=== PATIENT | female | born 1950 | race Caucasian/White ===

== ENCOUNTER 2017-12-20 08:00 | Day surgery (SDC) | payer MEDICARE, OTHER ==
[~2017-12-20 08:00] MED LIST: BRIMONIDINE 0.2% OPHTH DROPS 5 ML ONE; BSS/LIDOCAINE/EPINEPHRINE 1 ML SYRINGE ONE; TIMOLOL 0.5% OPHTH DROPS ONE; TRIAMCIN/MOXIFLOX OPHTHALMIC 0.6 ML VIAL IO ONE; VANCOMYCIN OPHTHALMI 8MG/0.8ML 8 MG/0.8 ML SYRINGE IO ONE
[2017-12-20] MEDS ORDERED: KETOROLAC 0.45% OPHTH DROPS ONE (08:39)
[2017-12-20] MEDS ORDERED: PHENYLEPHRINE 2.5% OPHTH 2 ML DROPS ONE (08:40)
[2017-12-20] MEDS ORDERED: PROPARACAINE 0.5% OPHTH DROPS 15 ML ONE (08:40)
[2017-12-20] MEDS ORDERED: CYCLOPENTOLATE 1% OPHTH DROPS 2 ML ONE (08:40)
[2017-12-20] MEDS ORDERED: LACTATED RINGERS 500 ML IV ONE ×2 (08:44)
[2017-12-20] MEDS ORDERED: LACTATED RINGERS 1,000 ML IV ONE (09:02)
--- NOTE | 2017-12-20 09:51 | ANESTHESIA ---
Anesthesia History & Physical - Instructions [place]/Slash: -Left hand click circles element as positive or present. -Right hand click slashes element as negative or not present. - History and Physical Cardiac:: reports: Other (lightheaded, nausea, "something has changed") GI/Endocrine:: reports: Denies Other:: reports: Denies - Anesthetic History Any difficulty with Anesthesia:: Denies Family history of Malignant Hyperthermia:: Denies - NPO NPO: positive: Other (Imodium @0700 with 10oz H2O) - Other History Other History: In to assess patient pre-operatively for cataract extraction with IOL placement under MAC. Pt lying back in bed with eyes closed saying "I don't feel well, something just changed" s/p eye gtts for procedure. Unable to palpate radial pulse at L and R hand. BP 78/43. (Admit HR and BP were 85 and 128/84, respectively.) 3 lead ECG placed (Sinus Bradycardia@42, not junctional). Pt with continued complaints of not feeling well. Robinul 0.3mg IV push x1. HR increased to 64 after 2 mins. BP 107. Pt states she feels much better. Discussed with ED MD Jc and he suggested we bring patient to ED to monitor. Patient refusing admit to ED, states she would rather see her primary care provider. Labs, EKG, Meds, Allergy - Medications Medications: Ambulatory Orders Medication Instructions Recorded Confirmed Loperamide [Imodium] 2 mg PO QID PRN 06/07/16 06/08/16 Multivitamin [Multivitamins] 1 each PO DAILY 06/08/16 06/08/16 Ondansetron Odt [Zofran Odt] 4 mg TL Q6HR PRN #30 tablet 06/09/16 - Allergy Allergy: Allergies Allergy/AdvReac Type Severity Reaction Status Date / Time Sulfa (Sulfonamide Allergy Unknown Verified 06/07/16 20:20 Antibiotics) Loperamide [Imodium] 2 mg PO QID PRN 06/07/16 Multivitamin [Multivitamins] 1 each PO DAILY 06/08/16 Ondansetron Odt [Zofran Odt] 4 mg TL Q6HR PRN #30 tablet 06/09/16
== END 2017-12-20 08:01 | disposition home or self-care (01) ==
LOC: SDS 08:00
PROVIDERS: ATTEND Ophthalmology
PROC: 085K3ZZ Destruction of Left Lens, Percutaneous Approach (ICD-10-PCS; principal; 2017-12-20)
DX: Z53.09 Procedure and treatment not carried out because of other contraindication (principal); R00.1 Bradycardia, unspecified; H26.9 Unspecified cataract
CPT/HCPCS: 66984; 93005; A9270; J3490; J7120

== ENCOUNTER 2018-01-17 06:24 | Day surgery (SDC) | payer MEDICARE, OTHER ==
[2018-01-17] MEDS ORDERED: KETOROLAC 0.45% OPHTH DROPS ONE (06:38)
[2018-01-17] MEDS ORDERED: PROPARACAINE 0.5% OPHTH DROPS 15 ML ONE (06:38)
[2018-01-17] MEDS ORDERED: CYCLOPENTOLATE 1% OPHTH DROPS 2 ML ONE (06:38)
[2018-01-17] MEDS ORDERED: PHENYLEPHRINE 2.5% OPHTH 2 ML DROPS ONE (06:38)
[2018-01-17] MEDS ORDERED: CYCLOPENTOLATE 1% OPHTH DROPS 2 ML LEFTEYE ONE (06:45)
[2018-01-17] MEDS ORDERED: LACTATED RINGERS 500 ML IV ONE (06:45)
[2018-01-17] MEDS ORDERED: PROPARACAINE 0.5% OPHTH DROPS 15 ML LEFTEYE ONE ×2 (06:45→07:45)
[2018-01-17] MEDS ORDERED: KETOROLAC 0.45% OPHTH DROPS LEFTEYE ONE (06:45)
[2018-01-17] MEDS ORDERED: PHENYLEPHRINE 2.5% OPHTH 2 ML DROPS LEFTEYE ONE (06:45)
[2018-01-17] MEDS ORDERED: EPINEPHrine 1 MG/ML AMP ONE (07:16)
[2018-01-17] MEDS ORDERED: TRIAMCIN/MOXIFLOX OPHTHALMIC 0.6 ML VIAL IO ONE (07:16)
[2018-01-17] MEDS ORDERED: TIMOLOL 0.5% OPHTH DROPS ONE (07:17)
[2018-01-17] MEDS ORDERED: BRIMONIDINE 0.2% OPHTH DROPS 5 ML ONE (07:17)
[2018-01-17] MEDS ORDERED: BSS/LIDOCAINE/EPINEPHRINE 1 ML SYRINGE ONE (07:18)
[2018-01-17] MEDS ORDERED: VANCOMYCIN OPHTHALMI 8MG/0.8ML 8 MG/0.8 ML SYRINGE IO ONE ×2 (07:19→07:45)
[2018-01-17] MEDS ORDERED: MIDAZOLAM 2 MG/2 ML VIAL IVP ONE (07:40)
[2018-01-17] MEDS ORDERED: EPINEPHrine 1 MG/ML AMP IR ONE (07:45)
[2018-01-17] MEDS ORDERED: BSS/LIDOCAINE/EPINEPHRINE 1 ML SYRINGE IO ONE (07:45)
[2018-01-17] MEDS ORDERED: TIMOLOL 0.5% OPHTH DROPS OPTH ONE (07:45)
[2018-01-17] MEDS ORDERED: BRIMONIDINE 0.2% OPHTH DROPS 5 ML LEFTEYE ONE (07:45)
[2018-01-17] MEDS ORDERED: CHONDR SULF/HYALURONATE SYRINGE IO ONE (07:45)
[2018-01-17 08:33] VITALS: BP 118/71
--- NOTE | 2018-01-17 10:19 | OPERATIVE REPORT ---
DATE OF SERVICE: 01/17/2018 Physician: Orion Holbrook MD PREOPERATIVE DIAGNOSIS: Visually significant cataract, left eye. This was her first cataract surgery. POSTOPERATIVE DIAGNOSIS: Visually significant cataract, left eye. This was her first cataract surgery. NAME OF PROCEDURE: Phacoemulsification with posterior chamber intraocular lens implant, left eye, with laser assist. SURGEON: Orion Holbrook MD ANESTHESIA: Monitored anesthesia care. COMPLICATIONS: None. OPERATIVE INDICATIONS: This is a 67-year-old woman with progressive vision loss in the left eye due to 2+ nuclear sclerotic cataract. Best corrected visual acuity was 20/ 20, with glare to 20/50 in the left eye. Indications for surgery were difficulty in driving in low light or at night, difficulty driving at night because of head lights from other vehicles and/or street lights. She was consented at length concerning risks and benefits of cataract surgery, after which she expressed a desire to proceed with surgery. OPERATIVE PROCEDURE: The patient was taken to OR #3 and placed under monitored anesthesia care. A surgical timeout was conducted confirming correct patient, correct procedure, and correct surgical site. She was placed on the LenSx laser, and her eye was docked to the laser interface. The laser performed a capsulotomy, lens softening, phaco wounds and arcuate keratotomy incisions. She was then moved to the operating microscope, given topical anesthesia, and then prepped and draped in the usual sterile fashion. The eye was entered at the 6 and 3-o'clock positions. Intracameral Shugarcaine was injected into the anterior chamber, followed by Viscoat. A capsulorrhexis flap created by the LenSx laser was removed from the anterior chamber. Nucleus was hydrodissected and phacoemulsified. Cortex was evacuated using automated infusion and aspiration. Provisc was injected in the capsular bag and a 09.0-diopter intraocular lens inserted into the bag. Approximately 0.7 mL of a mixture of triamcinolone, moxifloxacin and vancomycin was injected subconjunctivally in the superior quadrant for infection and inflammation prophylaxis. I and A was used to evacuate the viscoelastic materials. The eye was inflated to physiologic pressure using balanced salt solution, and found to be watertight. The patient was taken from the operating room in good condition, and given postoperative instructions. TD: 01/17/2018 08:14 TAD
== END 2018-01-17 06:25 | disposition home or self-care (01) ==
LOC: SDS 06:24
PROVIDERS: ATTEND Ophthalmology
PROC: 08RK3JZ Replacement of Left Lens with Synthetic Substitute, Percutaneous Approach (ICD-10-PCS; principal; 2018-01-17 07:30)
DX: H25.12 Age-related nuclear cataract, left eye (principal); I10 Essential (primary) hypertension; M19.90 Unspecified osteoarthritis, unspecified site; Z86.73 Personal history of transient ischemic attack (TIA), and cerebral infarction without residual deficits; Z96.649 Presence of unspecified artificial hip joint; Z79.899 Other long term (current) drug therapy; Z94.89 Other transplanted organ and tissue status
CPT/HCPCS: 66984; A9270; J3490; V2632

== ENCOUNTER 2018-02-21 06:54 | Day surgery (SDC) | payer MEDICARE, OTHER ==
[~2018-02-21 06:54] MED LIST changes: -BRIMONIDINE 0.2% OPHTH DROPS 5 ML ONE; -BSS/LIDOCAINE/EPINEPHRINE 1 ML SYRINGE ONE; +CYCLOPENTOLATE 1% OPHTH DROPS 2 ML ONE; +EPINEPHrine 1 MG/ML AMP ONE; +KETOROLAC 0.45% OPHTH DROPS ONE; +PHENYLEPHRINE 2.5% OPHTH 2 ML DROPS ONE; +PROPARACAINE 0.5% OPHTH DROPS 15 ML ONE; -TIMOLOL 0.5% OPHTH DROPS ONE; -TRIAMCIN/MOXIFLOX OPHTHALMIC 0.6 ML VIAL IO ONE; -VANCOMYCIN OPHTHALMI 8MG/0.8ML 8 MG/0.8 ML SYRINGE IO ONE
[2018-02-21] MEDS ORDERED: TRIAMCIN/MOXIFLOX OPHTHALMIC 0.6 ML VIAL IO ONE (06:55)
[2018-02-21] MEDS ORDERED: BRIMONIDINE 0.2% OPHTH DROPS 5 ML ONE (06:55)
[2018-02-21] MEDS ORDERED: TIMOLOL 0.5% OPHTH DROPS ONE (06:55)
[2018-02-21] MEDS ORDERED: BSS/LIDOCAINE/EPINEPHRINE 1 ML SYRINGE ONE (06:56)
[2018-02-21] MEDS ORDERED: VANCOMYCIN OPHTHALMI 8MG/0.8ML 8 MG/0.8 ML SYRINGE IO ONE (06:56)
[2018-02-21] MEDS ORDERED: LACTATED RINGERS 500 ML IV ONE ×2 (07:09→08:49)
[2018-02-21] MEDS ORDERED: CYCLOPENTOLATE 1% OPHTH DROPS 2 ML RIGHTEYE ONE (07:23)
[2018-02-21] MEDS ORDERED: PROPARACAINE 0.5% OPHTH DROPS 15 ML RIGHTEYE ONE ×2 (07:23→08:15)
[2018-02-21] MEDS ORDERED: PHENYLEPHRINE 2.5% OPHTH 2 ML DROPS RIGHTEYE ONE (07:23)
[2018-02-21] MEDS ORDERED: KETOROLAC 0.45% OPHTH DROPS RIGHTEYE ONE (07:23)
--- NOTE | 2018-02-21 07:24 | ANESTHESIA ---
Pre-Anesthesia VS, & Labs - Diagnosis R Nuclear Sclerotic Cataract - Procedure R laser assisted extraction of R cataract with IOL Vital Signs: Temp Pulse Resp BP Pulse Ox 36.2 C L 16 134/85 H 100 02/21/18 07:10 02/21/18 07:10 02/21/18 07:10 02/21/18 07:10 Height 5 ft 1 in Weight (kg) 47.2 kg Body Mass Index 19.6 - NPO >8 hours - Is Patient ?: No Home Medications and Allergies Home Medications: Ambulatory Orders Medication Instructions Recorded Confirmed Loperamide [Imodium] 2 mg PO QID PRN 06/07/16 01/17/18 Multivitamin [Multivitamins] 1 each PO DAILY 06/08/16 01/17/18 Allergies/Adverse Reactions: Allergies Allergy/AdvReac Type Severity Reaction Status Date / Time Sulfa (Sulfonamide Allergy Unknown Unknown Verified 02/21/18 07:27 Antibiotics) Anes History & Medical History - Anesthetic History Anesthesia Complications: reports: No previous complications Family history of Anesthesia Complications: Denies Family history of Malignant Hyperthermia: Denies - Medical History Cardiovascular: reports: None Pulmonary: reports: None Gastrointestinal: reports: Other Urinary: reports: None Musculoskeletal: reports: Osteoarthritis, Osteoporosis Endocrine/Autoimmune: reports: None Blood Disorders: reports: None Skin: reports: None Smoking Status: Never smoker - Surgical History General: Bowel surgery Eyes Ears Nose Throat (EENT): Tonsil/Adenoidectomy Gynecologic: Hysterectomy, Oophrectomy Orthopedic: Hip replacement, Other Results - EKG Results EKG Comparison: Reviewed EKG (SR@79 with sinus pause 12/20/17) Exam General: Alert, Oriented x3, Cooperative, No acute distress Neck Mobility: Normal Mallampati classification: II Thyromental Distance: 4-6 cm Respiratory: Lungs clear, Normal breath sounds Cardiovascular: Regular rate (Symptomatic bradycardia with previous admit for cataract extraction. Case was cancelled. Next visit, pt was not bradycardic and able to complete procedure.) Cognitive Status: Within normal limits Plan Anesthesia Type: MAC Consent for Procedure(s) Verified and Reviewed: Yes Code Status: Attempt Resuscitation ASA classification: 2-Mild systemic disease Is this case an emergency?: No
[2018-02-21] MEDS ORDERED: CHONDR SULF/HYALURONATE SYRINGE IO ONE (08:14)
[2018-02-21] MEDS ORDERED: EPINEPHrine 1 MG/ML AMP IVP ONE (08:14)
[2018-02-21] MEDS ORDERED: BRIMONIDINE 0.2% OPHTH DROPS 5 ML OPTH ONE (08:14)
[2018-02-21] MEDS ORDERED: TIMOLOL 0.5% OPHTH DROPS OPTH ONE (08:14)
[2018-02-21] MEDS ORDERED: TRIAMCIN/MOXIFLOX/VANCO 1 ML VIAL IO ONE ×2 (08:15)
[2018-02-21] MEDS ORDERED: BSS/LIDOCAINE/EPINEPHRINE 1 ML SYRINGE IO ONE ×2 (08:15)
[2018-02-21] MEDS ORDERED: MIDAZOLAM 2 MG/2 ML VIAL IVP ONE (08:34)
[2018-02-21 08:52] VITALS: BP 122/93
--- NOTE | 2018-02-21 16:56 | OPERATIVE REPORT ---
DATE OF SERVICE: 02/21/2018 Physician: Orion Holbrook MD PREOPERATIVE DIAGNOSIS: Visually significant cataract, right eye. Cataract surgery was performed on her left eye on 01/17/2018. POSTOPERATIVE DIAGNOSIS: Visually significant cataract, right eye. Cataract surgery was performed o n her left eye on 01/17/2018. PROCEDURE PERFORMED: Phacoemulsification with posterior chamber intraocular lens implant, right eye, with laser assist. SURGEON: Orion Holbrook MD ANESTHESIA: Monitored anesthesia care. COMPLICATIONS: None. OPERATIVE INDICATIONS: This is a 68-year-old woman with progressive vision loss in the right eye due to 2+ nuclear sclerotic and 1 to 2+ cortical cataract. Best corrected visual acuity was 20/20 with glare to 20/50 in the right eye. Indications for surgery are overall decrease in vision, difficulty reading, difficulty seeing street signs, difficulty driving in low light or at night, difficulty driv ing at night because of headlights from other vehicles, and difficulty with glare or bright lights in any situation. She was consented at length concerning risks and benefits of cataract surgery, after which she expressed a desire to proceed with surgery. OPERATIVE PROCEDURE: The patient was taken into OR #3 and placed under monitored anesthesia care. A surgical timeout was conducted confirming correct patient, correct procedure, and correct surgical s ite. She was placed on the LenSx laser and her eye was docked to the laser interface. The laser per formed the capsulotomy, lens softening, phaco wounds and arcuate keratotomy incisions. She was then moved to the operating microscope, given topical anesthesia, and prepped and draped in the usual ster ile fashion. The eye was entered at the 12 and 9 o'clock positions. Intracameral Shugarcaine was in jected into the anterior chamber followed by Viscoat. A capsulorrhexis flap created by the LenSx las er was removed from the anterior chamber. Nucleus was hydrodissected and phacoemulsified. The jolie x was evacuated using automated infusion and aspiration. Provisc was injected in the capsular bag an d an 11.5 diopter intraocular lens was inserted into the bag. Approximately 0.7 mL of a mixture of t riamcinolone, moxifloxacin, and vancomycin was injected subconjunctivally in the superior quadrant fo r infection and inflammation prophylaxis. I and A was used to evacuate the viscoelastic materials. The eye was inflated to physiologic pressure using balanced salt solution and found to be watertight. The patient was taken from the operating room in good condition and given postop instructions. TD: 02/21/2018 08:53
== END 2018-02-21 06:55 | disposition home or self-care (01) ==
LOC: SDS 06:54
PROVIDERS: ATTEND Ophthalmology
PROC: 08RJ3JZ Replacement of Right Lens with Synthetic Substitute, Percutaneous Approach (ICD-10-PCS; principal; 2018-02-21 08:00)
DX: H25.811 Combined forms of age-related cataract, right eye (principal); Z98.42 Cataract extraction status, left eye
CPT/HCPCS: 66984; A9270; J3490; V2632

== ENCOUNTER 2019-09-21 12:44 | Outpatient (CLI) | payer MEDICARE, OTHER ==
--- NOTE | 2019-09-22 07:33 | Ultrasound Report ---
Reason: THYROID NODULE Procedure Date: 09/21/2019 Accession Number: [id number] / [id number] Procedure: US - Head or Neck Soft Tissue CPT Code: Final Report FULL RESULT: EXAM: THYROID ULTRASOUND EXAM DATE: 09/21/2019 12:50 PM. CLINICAL HISTORY: Thyroid nodule. COMPARISON: None. TECHNIQUE: Real time sonographic imaging of the thyroid was performed by the economic manager. Multiple truck sales representative static images were saved for review. FINDINGS: THYROID GLAND: Right Lobe: 4.3 x 1.7 x 1.6 cm, volume 6.1 cc. Normal background echotexture. Right Lobe Nodules: Inferior pole nodule measuring 0.3 x 0.4 cm, with slightly irregular margin, perhaps secondary to rim calcification. Left Lobe: 4.2 x 1.0 x 1.3 cm, volume 2.9 cc. Normal background echotexture. Left Lobe Nodules: None. Isthmus: 0.2 cm AP. Normal background echotexture. Isthmic Nodules: None. LYMPH NODES: No adenopathy demonstrated in the central or lateral compartment. OTHER: No lymph node or abnormal mass detected at the left submandibular gland region area of concern. IMPRESSION: 1. No mass is detected at the area of concern in the region of the left submandibular gland. 2. Single subcentimeter nodule, located in inferior right thyroid lobe. Slightly irregular margins, perhaps secondary to rim calcification. Suggest a follow-up within 6 months to ensure stability. 3. No additional thyroid lobe nodules identified. Management recommendations are based on 2015 [place] [employer] Management Guidelines for Adult Patients with Thyroid Nodules and Differentiated Thyroid Cancer. RADIA
== END 2019-09-21 12:45 | disposition home or self-care (01) ==
LOC: DI 12:44
PROVIDERS: ATTEND Physician Assistant
DX: E04.1 Nontoxic single thyroid nodule (principal)
CPT/HCPCS: 76536

== ENCOUNTER 2020-04-30 07:50 | Outpatient (CLI) | payer MEDICARE, OTHER ==
[2020-04-30] MEDS ORDERED: IOVERSOL 320 100 ML VIAL IVP ONE ×2 (08:10→10:02)
[2020-04-30] MEDS ORDERED: IOVERSOL 320 50 ML VIAL ONE (08:10)
[2020-04-30 08:21] LABS: BASOPHILS % (AUTO) 0.6 %; EOSINOPHILS # (AUTO) 0.1 10^3/uL (0.0-0.7); EOSINOPHILS % (AUTO) 1.5 %; HGB - HEMOGLOBIN 13.6 g/dL (12.0-16.0); LYMPHOCYTES # (AUTO) 1.3 10^3/uL (1.5-3.5); LYMPHOCYTES % (AUTO) 23.8 %; MEAN CORPUSCULAR HEMOGLOBIN 32.7 pg (27.0-31.0); MEAN CORPUSCULAR HGB CONC 33.8 g/dL (32.0-36.0); MEAN CORPUSCULAR VOLUME 96.6 fL (81.0-99.0); MEAN PLATELET VOLUME 10.9 fL (7.9-10.8); MONOCYTES # (AUTO) 0.3 10^3/uL (0.0-1.0); MONOCYTES % (AUTO) 6.4 %; NEUTROPHILS # (AUTO) 3.6 10^3/uL (1.5-6.6); NEUTROPHILS % (AUTO) 67.3 %; PLT - PLATELET COUNT 202 10^3/uL (130-450); RED BLOOD COUNT 4.16 10^6/uL (4.20-5.40); WHITE BLOOD COUNT 5.3 x10^3/uL (4.8-10.8)
[2020-04-30 08:42] LABS: ALBUMIN 3.9 g/dL (3.2-5.5); ALBUMIN/GLOBULIN RATIO 1.7 (1.0-2.2); BILIRUBIN,TOTAL 0.9 mg/dL (0.2-1.0); CALCIUM 9.1 mg/dL (8.5-10.3); CREATININE 0.8 mg/dL (0.4-1.0); TOTAL PROTEIN 6.2 g/dL (6.7-8.2)
--- NOTE | 2020-04-30 09:18 | CT Report ---
PROCEDURE: Abdomen/Pelvis W INDICATIONS: ABD MASS CONTRAST: IV CONTRAST: Optiray 320 ml: 100 PO CONTRAST: Optiray 320 ml50 TECHNIQUE: After the administration of oral and intravenous contrast, 5 mm thick sections acquired from the diap hragms to the symphysis. 5 mm thick coronal and sagittal reformats were acquired. For radiation dos e reduction, the following was used: automated exposure control, adjustment of mA and/or kV accordin g to patient size. COMPARISON: CT abdomen and pelvis 06/07/2016. FINDINGS: Image quality: Excellent. ABDOMEN: Lung bases: Lung bases are clear. Heart size is normal. Suspect small hiatal hernia. Solid organs: Liver is enlarged in size. No focal lesion. Gallbladder is unremarkable. Biliary sys tem is non dilated. Pancreas enhances normally. No splenomegaly. No adrenal nodules. Kidneys demon strate normal size and enhancement, without hydronephrosis. Cortical hypodensity in the inferior righ t kidney too small to further characterize. Peritoneum and bowel: Bowel loops demonstrate normal wall thickness and caliber. Appendix is absent . No free fluid or air. Nodes and vessels: No retroperitoneal or mesenteric adenopathy by size criteria. Aorta and inferior vena cava are normal in size. Miscellaneous: No ventral hernias. Mild thickening of the infraumbilical abdominal wall, (7/34), how ever similar to 2016. PELVIS: Genitourinary: Bladder is unremarkable. Beam hardening artifact. Miscellaneous: No inguinal hernias or adenopathy. Bones: No suspicious bony lesions. Scoliosis. No vertebral body compression fractures. Right total hip arthroplasty. IMPRESSION: 1. Mild thickening of the infraumbilical abdominal wall, not significantly changed. No fluid collecti on is identified. -Consider targeted ultrasound of the site of serous fluid drainage. 2. No bowel obstruction. 3. No adenopathy. Reviewed by: Dean Gonzalez MD on 04/30/2020 9:17 AM PDT Approved by: Dean Gonzalez MD on 04/30/2020 9:17 AM PDT Station ID: [id number]
[2020-04-30] MEDS ORDERED: IOVERSOL 320 50 ML VIAL PO ONE (10:03)
== END 2020-04-30 07:51 | disposition home or self-care (01) ==
LOC: DI 07:50
PROVIDERS: ATTEND Nurse Practitioner Family
DX: R19.00 Intra-abdominal and pelvic swelling, mass and lump, unspecified site (principal)
CPT/HCPCS: 36415; 74177; 80053; 85025; Q9967

== ENCOUNTER 2020-09-14 07:01 | Outpatient (CLI) | payer MEDICARE, OTHER ==
[2020-09-14 15:12] LABS: BASOPHILS % (AUTO) 0.8 %; EOSINOPHILS # (AUTO) 0.1 10^3/uL (0.0-0.7); EOSINOPHILS % (AUTO) 2.4 %; HCT - HEMATOCRIT 40.4 % (37.0-47.0); HGB - HEMOGLOBIN 13.4 g/dL (12.0-16.0); LYMPHOCYTES # (AUTO) 1.8 10^3/uL (1.5-3.5); LYMPHOCYTES % (AUTO) 36.7 %; MEAN CORPUSCULAR HGB CONC 33.2 g/dL (32.0-36.0); MEAN CORPUSCULAR VOLUME 99.5 fL (81.0-99.0); MEAN PLATELET VOLUME 12.5 fL (7.9-10.8); MONOCYTES # (AUTO) 0.3 10^3/uL (0.0-1.0); MONOCYTES % (AUTO) 6.6 %; NEUTROPHILS # (AUTO) 2.7 10^3/uL (1.5-6.6); NEUTROPHILS % (AUTO) 53.3 %; PLT - PLATELET COUNT 210 10^3/uL (130-450); RED BLOOD COUNT 4.06 10^6/uL (4.20-5.40); RED CELL DISTRIBUTION WIDTH 12.1 % (12.0-15.0)
[2020-09-14 15:38] LABS: THYROID STIMULATING HORMONE 5.13 uIU/mL (0.34-5.60)
[2020-09-14 15:42] LABS: ALBUMIN 4.2 g/dL (3.2-5.5); ALKALINE PHOSPHATASE 65 IU/L (42-121); ALT ALANINE AMINOTRANSFERASE 24 IU/L (10-60); AST ASPARTATE AMINOTRANSFERASE 32 IU/L (10-42); BILIRUBIN,TOTAL 1.2 mg/dL (0.2-1.0); BUN - BLOOD UREA NITROGEN 22 mg/dL (6-20); CALCIUM 9.2 mg/dL (8.5-10.3); CARBON DIOXIDE - CO2 26 mmol/L (21-32); CHLORIDE 102 mmol/L (101-111); CHOL/HDL RATIO 2.1 (<4.4); CHOLESTEROL 241 mg/dL; CREATININE 0.7 mg/dL (0.4-1.0); GFR - MDRD 83 (>89); GLUCOSE 89 mg/dL (70-100); HDL CHOLESTEROL 116 mg/dL; LDL CHOLESTEROL,CALCULATED 114 mg/dL; POTASSIUM 4.1 mmol/L (3.5-5.0); SODIUM 137 mmol/L (135-145); TOTAL PROTEIN 6.3 g/dL (6.7-8.2); TRIGLYCERIDES 57 mg/dL; VLDL CHOLESTEROL 11 mg/dL
== END 2020-09-14 07:02 | disposition home or self-care (01) ==
LOC: LAB.S 07:01
PROVIDERS: ATTEND Internal Medicine
DX: M81.0 Age-related osteoporosis without current pathological fracture (principal); Z13.6 Encounter for screening for cardiovascular disorders; Z79.899 Other long term (current) drug therapy; K91.2 Postsurgical malabsorption, not elsewhere classified
CPT/HCPCS: 36415; 80053; 80061; 82306; 82607; 83721; 84443; 85025

== ENCOUNTER 2022-05-08 11:59 | Outpatient (CLI) | payer MEDICARE ==
[2022-05-08 12:29] LABS: BASOPHILS % (AUTO) 0.4 %; EOSINOPHILS # (AUTO) 0.1 10^3/uL (0.0-0.7); HCT - HEMATOCRIT 41.3 % (37.0-47.0); HGB - HEMOGLOBIN 13.9 g/dL (12.0-16.0); LYMPHOCYTES # (AUTO) 1.3 10^3/uL (1.5-3.5); LYMPHOCYTES % (AUTO) 16.2 %; MEAN CORPUSCULAR HEMOGLOBIN 32.7 pg (27.0-31.0); MEAN CORPUSCULAR HGB CONC 33.7 g/dL (32.0-36.0); MEAN CORPUSCULAR VOLUME 97.2 fL (81.0-99.0); MEAN PLATELET VOLUME 10.9 fL (7.9-10.8); MONOCYTES # (AUTO) 0.4 10^3/uL (0.0-1.0); MONOCYTES % (AUTO) 4.9 %; NEUTROPHILS # (AUTO) 6.1 10^3/uL (1.5-6.6); NEUTROPHILS % (AUTO) 77.2 %; PLT - PLATELET COUNT 223 10^3/uL (130-450); RED BLOOD COUNT 4.25 10^6/uL (4.20-5.40); RED CELL DISTRIBUTION WIDTH 11.7 % (12.0-15.0); WHITE BLOOD COUNT 7.9 x10^3/uL (4.8-10.8)
[2022-05-08 12:49] LABS: ALBUMIN 4.3 g/dL (3.2-5.5); ALKALINE PHOSPHATASE 58 IU/L (42-121); ALT ALANINE AMINOTRANSFERASE 20 IU/L (10-60); AST ASPARTATE AMINOTRANSFERASE 27 IU/L (10-42); BILIRUBIN,TOTAL 0.7 mg/dL (0.2-1.0); BUN - BLOOD UREA NITROGEN 25 mg/dL (6-20); CALCIUM 9.6 mg/dL (8.5-10.3); CARBON DIOXIDE - CO2 28 mmol/L (21-32); CHLORIDE 103 mmol/L (101-111); CHOL/HDL RATIO 2.1 (<4.4); CHOLESTEROL 223 mg/dL; CREATININE 0.8 mg/dL (0.4-1.0); GFR - MDRD 71 (>89); GLUCOSE 97 mg/dL (70-100); HDL CHOLESTEROL 105 mg/dL; LDL CHOLESTEROL,CALCULATED 86 mg/dL; LDL/HDL RATIO 0.8 (<4.4); POTASSIUM 4.5 mmol/L (3.5-5.0); SODIUM 139 mmol/L (135-145); TOTAL PROTEIN 6.4 g/dL (6.7-8.2); TRIGLYCERIDES 160 mg/dL; VLDL CHOLESTEROL 32 mg/dL
[2022-05-09 05:10] LABS: HBsAG SCREEN Negative (Negative); HCV AB <0.1 s/co ratio (0.0-0.9); HEPATITIS B CORE IGM AB Negative (Negative); HEPATITIS B SURFACE AB QUANT <3.1 mIU/mL (Immunity>9.9)
== END 2022-05-08 12:00 | disposition home or self-care (01) ==
LOC: LAB 11:59
PROVIDERS: ATTEND Physician Assistant
DX: L63.8 Other alopecia areata (principal)
CPT/HCPCS: 36415; 80053; 80061; 81599; 83721; 85025; 86317; 86480; 86705; 86803; 87340

== ENCOUNTER 2022-06-12 09:26 | Outpatient (CLI) | payer MEDICARE ==
--- NOTE | 2022-06-12 13:11 | XRAY Report ---
PROCEDURE: Chest 2 View X-Ray INDICATIONS: COUGH TECHNIQUE: 2 views of the chest were acquired. COMPARISON: None FINDINGS: Surgical changes and devices: None. Lungs and pleura: No pleural effusions or pneumothorax. There is a 6 to 7 mm indeterminate nodular d ensity along the left costophrenic angle. Given the imaging findings aren't recommend a CT of the neeru st with intravenous contrast for further evaluation. Mediastinum: Mediastinal contours are normal. Heart size is normal. Bones and chest wall: No suspicious bony abnormalities. Soft tissues appear unremarkable. There is a mild to moderate thoracolumbar scoliosis present. IMPRESSION: 1. Small indeterminate 6 to 7 mm nodular density involving the patient's left costophrenic angle. Giv en the imaging findings I recommend a CT of the chest with intravenous contrast for further evaluatio n. 2. Mild to moderate thoracolumbar scoliosis. Reviewed by: Lucas David MD on 06/12/2022 1:10 PM PST Approved by: Lucas David MD on 06/12/2022 1:10 PM PST Station ID: [id number]
== END 2022-06-12 09:27 | disposition home or self-care (01) ==
LOC: DI.S 09:26
PROVIDERS: ATTEND Internal Medicine
DX: R91.8 Other nonspecific abnormal finding of lung field (principal); M41.9 Scoliosis, unspecified

== ENCOUNTER 2022-06-23 10:15 | Outpatient (CLI) | payer MEDICARE | END 2022-06-23 10:16 | disposition home or self-care (01) | LOC: LAB.S 10:15 | PROVIDERS: ATTEND Internal Medicine | DX: R91.1 Solitary pulmonary nodule (principal); Z22.7 Latent tuberculosis | CPT/HCPCS: 81599 ==

== ENCOUNTER 2022-08-10 13:53 | Outpatient (CLI) | payer MEDICARE | END 2022-08-10 13:54 | disposition home or self-care (01) | LOC: LAB.S 13:53 | PROVIDERS: ATTEND Internal Medicine | DX: Z22.7 Latent tuberculosis (principal) | CPT/HCPCS: 81599; 86480 ==

== ENCOUNTER 2022-09-13 15:25 | Outpatient (CLI) | payer MEDICARE ==
--- NOTE | 2022-09-13 16:07 | CT Report ---
PROCEDURE: HEAD WO INDICATIONS: HEADACHE TECHNIQUE: Noncontrast 4.5 mm thick angled axial sections acquired from the foramen magnum to the vertex. For r adiation dose reduction, the following was used: automated exposure control, adjustment of mA and/or kV according to patient size. COMPARISON: None. FINDINGS: Image quality: Excellent. CSF spaces: Basal cisterns are patent. No extra-axial fluid collections. Ventricles are normal in size and shape. Brain: No midline shift. No intracranial masses or hemorrhage. Ribera-white matter interface is norm al. Skull and face: Calvarium and visualized facial bones are intact, without suspicious lesions. Sinuses: Visualized sinuses and mastoids are clear. IMPRESSION: No acute intracranial finding. Reviewed by: Peewee Cortez MD on 09/13/2022 4:06 PM [facility] Approved by: Peewee Cortez MD on 09/13/2022 4:06 PM [facility] Station ID: [id number]
== END 2022-09-13 15:26 | disposition home or self-care (01) ==
LOC: DI 15:25
PROVIDERS: ATTEND Internal Medicine
DX: R51.9 Headache, unspecified (principal)

== ENCOUNTER 2022-09-26 06:27 | Day surgery (SDC) | payer MEDICARE ==
[2022-09-26] MEDS ORDERED: CEFAZOLIN 2G/50ML 0.9% NS 2 GM/50 ML BAG IV ONE (06:31)
[2022-09-26] MEDS ORDERED: LACTATED RINGERS 1,000 ML IV ONE (06:52)
[2022-09-26] MEDS ORDERED: fentaNYL 100 MCG/2 ML VIAL ONE (07:08)
[2022-09-26] MEDS ORDERED: MIDAZOLAM 2 MG/2 ML VIAL ONE (07:08)
[2022-09-26] MEDS ORDERED: PROPOFOL 200 MG/20 ML VIAL IVP ONE (07:08)
[2022-09-26] MEDS ORDERED: BUPIVACAINE 0.5% PF 30 ML VIAL ONE (07:16)
--- NOTE | 2022-09-26 07:28 | ANESTHESIA ---
Pre-Anesthesia VS, & Labs - Diagnosis giant cell arteritis - Procedure temporal artery biopsy Vital Signs: Temp Pulse Resp BP Pulse Ox O2 Flow Rate 36.4 C L 63 18 129/79 100 09/26/22 06:52 09/26/22 06:52 09/26/22 06:52 09/26/22 06:52 09/26/22 06:52 Height: 5 ft 1 in Weight (kg): 45.6 kg Body Mass Index: 19.0 BMI Classification: Normal - NPO >8 hours - Is Patient ?: No Home Medications and Allergies Home Medications: Ambulatory Orders Lisinopril [Zestril] 2 tab PO DAILY 09/25/22 amLODIPine [Norvasc] 1 tab PO DAILY 09/25/22 predniSONE [Prednisone] 1 tab PO DAILY 09/25/22 rifAMPin [Rifampin] 450 mg PO DAILY 09/25/22 Loperamide [Imodium] 2 mg PO QID PRN 06/07/16 Multivitamin [Multivitamins] 1 each PO DAILY 06/08/16 Lisinopril [Zestril] 2 tab PO DAILY 09/25/22 amLODIPine [Norvasc] 1 tab PO DAILY 09/25/22 predniSONE [Prednisone] 1 tab PO DAILY 09/25/22 rifAMPin [Rifampin] 450 mg PO DAILY 09/25/22 Allergies/Adverse Reactions: Allergies Allergy/AdvReac Type Severity Reaction Status Date / Time Sulfa (Sulfonamide Allergy Unknown Unknown Verified 09/25/22 12:36 Antibiotics) Anes History & Medical History - Anesthetic History Anesthesia Complications: reports: No previous complications - Medical History Cardiovascular: reports: Hypertension Pulmonary: reports: Other (latent TB) Gastrointestinal: reports: None Urinary: reports: None Neuro: reports: None Musculoskeletal: reports: Osteoarthritis, Osteoporosis Endocrine/Autoimmune: reports: None Blood Disorders: reports: None Skin: reports: None Smoking Status: Never smoker Psychosocial: reports: No issues indicated History of Cancer?: No - Surgical History General: reports: Bowel surgery Eyes Ears Nose Throat (EENT): reports: Tonsil/Adenoidectomy Gynecologic: reports: Hysterectomy, Oophrectomy Orthopedic: reports: Hip replacement, Other Exam General: Alert, Oriented x3, Cooperative, No acute distress Dental: WNL Mouth Openin Fingerbreadth Neck Mobility: Normal Mallampati classification: II Thyromental Distance: 4-6 cm Mental/Cognitive Status: Alert/Oriented X3, Normal for patient Plan Anesthesia Type: MAC Consent for Procedure(s) Verified and Reviewed: Yes Code Status: Attempt Resuscitation ASA classification: 2-Mild systemic disease Is this case an emergency?: No
[2022-09-26] MEDS ORDERED: BUPIVACAINE 0.5% PF 30 ML VIAL SUBQ ONE ×2 (08:21)
[2022-09-26] MEDS ORDERED: LACTATED RINGERS 500 ML IV ONE (08:58)
[2022-09-26 09:20] VITALS: BP 124/84
--- NOTE | 2022-09-26 09:20 | OPERATIVE REPORT ---
Operative Report - General Procedure Date: 09/26/22 Planned Procedure: RIGHT temporal artery biopsy Pre-Op Diagnosis: Unilateral severe headache concern for giant cell arteritis Procedure Performed: RIGHT temporal artery biopsy Post Op Diagnosis: Same - Procedure Note Primary Surgeon: Dante Mcneil MD Anesthesia Provider: Alex Jeronimo CRNA Anesthesia Technique: Local (4 mL of 0.5% Marcaine), MAC IV Fluids (mL): 500 Estimated Blood Loss (mL): 1 Drain/Tube Type: Other (None.) Complications: None. - Other Other Information/Narrative: After verbal and written informed consent was obtained detailing the operation, the alternatives the operation including no operation, risks of infection, bleeding requiring transfusion with its risks, nerve injury, and and after I met with the patient confirming the surgery and the site of surgery, the patient was brought to the operative suite and placed supine on the operating table. Great care was taken to avoid pressure points to prevent pressure necrosis or nerve injury. Monitoring devices were applied along with TEDs and pneumatic compression stockings (to prevent DVT). The patient received preoperative antibiotics for surgical prophylaxis. Alex Jeronimo CRNA sedated and anesthetized the patient for the entire procedure. Ultrasonography was used to identify the the artery and the border of the hair and skin just superior to the ear. The patient was prepped and draped in the usual sterile manner. With the patient draped my initials were clearly visible. A "time in" then confirmed that the patient was identified with 3 identifiers (name, date, and medical record number), the history and physical was updated and in the chart, the signed consent confirming the procedure was in the chart, the patient was in the correct position, the aforementioned prophylactic measures were in place or given, we had the correct personnel and equipment to complete the procedure and that anesthesia and the surgical team were given an opportunity to express any concerns. With the agreement of everyone in the room we proceeded with the operation. After injecting the skin overlying the path of the artery with half percent Marcaine, an incision was made tracing the path of the artery and was carried out down to the artery using a combination of sharp dissection with Metzenbaum scissors and Bovie electrocautery. Meticulous hemostasis was achieved using Bovie electrocautery. Once the artery was identified and freed from its surrounding tissues a sterile ultrasound probe was used to definitively identify arterial blood flow within it. The artery was then clipped using small hemoclips proximally and distally and the specimen was excised with Metzenbaum scissors, removed from the operative field, placed on a moistened Telfa, and placed in formalin for pathologic evaluation. The ultrasound probe was then used again today to demonstrate that there was no arterial flow behind the location of where the artery was removed to ensure completion of the resection. Meticulous hemostasis was ensured using Bovie electrocautery. The surrounding skin was then reinjected using half percent Marcaine for long-term pain control. The skin was approximated using 3-0 Prolene in an interrupted and alternating mattress and simple fashion. Prolene was used to make identification of the suture easier for removal. Additionally standard sutures were placed in order allow for shampooing of the patient's hair without concern of wound dehiscence. The skin was cleaned of its prep. At this point a timeout was performed that confirmed that all counts were correct x2, the procedure that was performed, the blood loss, the IV fluids administered, the patient's condition, and any concerns of the operating team had. Having tolerated the procedure well, the patient was taken recovery room in good and stable condition. The plan is for outpatient discharge when the patient is adequately recovered. This document was created in part using voice recognition technology. Because of the inherent limitations of the system, occasional same sounding word substitutions and grammatical errors do occur and persist despite proofreading. Please read this document for content.
--- NOTE | 2022-09-26 09:23 | ANESTHESIA POST OP EVALUATION ---
Anesthesia Post Eval - Post Anesthesia Eval Vitals: Last Vital Signs Temp 36.3 C L 09/26/22 09:17 Pulse 64 09/26/22 09:17 Resp 18 09/26/22 09:17 BP 124/84 H 09/26/22 09:17 Pulse Ox 99 09/26/22 09:17 O2 Flow Rate CV Function Including HR & BP: Stable Pain Control: Satisfactory Nausea & Vomiting: Negative Mental Status: Baseline Respiratory Status: Airway Patent Hydration Status: Satisfactory Anesthesia Complications: None
== END 2022-09-26 06:28 | disposition home or self-care (01) ==
LOC: SDS 06:27
PROVIDERS: ATTEND Surgery
PROC: 03BS0ZX Excision of Right Temporal Artery, Open Approach, Diagnostic (ICD-10-PCS; principal; 2022-09-26 07:30)
DX: R51.9 Headache, unspecified (principal); I10 Essential (primary) hypertension; Z86.16 Personal history of COVID-19
CPT/HCPCS: 37609; J0690; J7120

== ENCOUNTER 2022-10-03 12:24 | Day surgery (SDC) | payer MEDICARE ==
[2022-10-03] MEDS ORDERED: LACTATED RINGERS 1,000 ML IV ONE (13:07)
[2022-10-03] MEDS ORDERED: PROPOFOL 500 MG/50 ML 500 MG/50 ML VIAL ONE (15:49)
--- NOTE | 2022-10-03 16:05 | ANESTHESIA ---
Pre-Anesthesia VS, & Labs - Diagnosis positive fit test - Procedure colonoscopy Vital Signs: Temp Pulse Resp BP Pulse Ox O2 Flow Rate 36.2 C L 60 16 129/77 100 10/03/22 12:45 10/03/22 12:45 10/03/22 12:45 10/03/22 12:45 10/03/22 12:45 Height: 5 ft 1 in Weight (kg): 44.8 kg Body Mass Index: 18.6 BMI Classification: Normal - NPO >8 hours - Is Patient ?: No Home Medications and Allergies Loperamide [Imodium] 2 mg PO QID PRN 06/07/16 Multivitamin [Multivitamins] 1 each PO DAILY 06/08/16 Lisinopril [Zestril] 2 tab PO DAILY 09/25/22 amLODIPine [Norvasc] 1 tab PO DAILY 09/25/22 predniSONE [Prednisone] 1 tab PO DAILY 09/25/22 rifAMPin [Rifampin] 450 mg PO DAILY 09/25/22 Allergies/Adverse Reactions: Allergies Allergy/AdvReac Type Severity Reaction Status Date / Time Sulfa (Sulfonamide Allergy Unknown Unknown Verified 09/25/22 12:36 Antibiotics) Anes History & Medical History - Anesthetic History Anesthesia Complications: reports: No previous complications - Medical History Cardiovascular: reports: Hypertension Pulmonary: reports: Other Gastrointestinal: reports: None Urinary: reports: None Neuro: reports: None Musculoskeletal: reports: Osteoarthritis, Osteoporosis Endocrine/Autoimmune: reports: None Blood Disorders: reports: None Skin: reports: None Smoking Status: Never smoker Psychosocial: reports: No issues indicated - Surgical History General: reports: Bowel surgery, Colonoscopy Eyes Ears Nose Throat (EENT): reports: Tonsil/Adenoidectomy Gynecologic: reports: Hysterectomy, Oophrectomy Orthopedic: reports: Hip replacement, Other Exam General: Alert, Oriented x3, Cooperative, No acute distress Dental: WNL Mouth Openin Fingerbreadth Neck Mobility: Normal Mallampati classification: II Thyromental Distance: 4-6 cm Mental/Cognitive Status: Alert/Oriented X3, Normal for patient Plan Anesthesia Type: General, Total IV Consent for Procedure(s) Verified and Reviewed: Yes Code Status: Attempt Resuscitation ASA classification: 2-Mild systemic disease Is this case an emergency?: No
[2022-10-03] MEDS ORDERED: LACTATED RINGERS 600 ML IV ONE (17:10)
[2022-10-03 17:32] VITALS: BP 122/71
--- NOTE | 2022-10-03 18:23 | ANESTHESIA POST OP EVALUATION ---
Anesthesia Post Eval - Post Anesthesia Eval Vitals: Last Vital Signs Temp 36.5 C 10/03/22 17:31 Pulse 66 10/03/22 17:31 Resp 18 10/03/22 17:31 BP 122/71 10/03/22 17:31 Pulse Ox 96 10/03/22 17:31 O2 Flow Rate CV Function Including HR & BP: Stable Pain Control: Satisfactory Nausea & Vomiting: Negative Mental Status: Baseline Respiratory Status: Airway Patent Hydration Status: Satisfactory Anesthesia Complications: None
== END 2022-10-03 12:25 | disposition home or self-care (01) ==
LOC: SDS 12:24
PROVIDERS: ATTEND Surgery
PROC: 0DBN8ZZ Excision of Sigmoid Colon, Via Natural or Artificial Opening Endoscopic (ICD-10-PCS; principal; 2022-10-03 13:00)
DX: R19.5 Other fecal abnormalities (principal); K52.9 Noninfective gastroenteritis and colitis, unspecified; K63.5 Polyp of colon; K64.8 Other hemorrhoids; Z90.49 Acquired absence of other specified parts of digestive tract; Z98.0 Intestinal bypass and anastomosis status
CPT/HCPCS: 45380; J7120

== ENCOUNTER 2022-10-27 14:50 | Outpatient (CLI) | payer MEDICARE ==
--- NOTE | 2022-10-27 17:18 | XRAY Report ---
PROCEDURE: Chest 2 View X-Ray INDICATIONS: PULMONARY NODULE TECHNIQUE: 2 views of the chest were acquired. COMPARISON: None. FINDINGS: Surgical changes and devices: None. Lungs and pleura: No pleural effusions or pneumothorax. Lungs are clear. Mediastinum: Mediastinal contours appear normal. Heart size is normal. Bones and chest wall: No suspicious bony lesions. Overlying soft tissues appear unremarkable. IMPRESSION: Normal two-view chest x-ray Reviewed by: Johan Causey MD on 10/27/2022 4:16 PM AKMAUREEN Approved by: Johan Causey MD on 10/27/2022 4:16 PM AKDT Station ID: [id number]
== END 2022-10-27 14:51 | disposition home or self-care (01) ==
LOC: DI.S 14:50
PROVIDERS: ATTEND Internal Medicine
DX: R91.1 Solitary pulmonary nodule (principal)

== ENCOUNTER 2022-11-21 11:28 | Outpatient (CLI) | payer MEDICARE ==
[2022-11-21] MEDS ORDERED: iohexoL-300 100 ML VIAL ONE (11:36)
[2022-11-21] MEDS ORDERED: DIATR MEGLU/DIATRIZOATE SODIUM 120 ML BOTTLE ONE (11:36)
[2022-11-21 12:23] LABS: CREATININE 0.7 mg/dL (0.4-1.0)
[2022-11-21] MEDS ORDERED: DIATRIZOATE MEGLU/DIATRIZO SOD 30 ML BOTTLE PO ONE (15:27)
[2022-11-21] MEDS ORDERED: iohexoL-300 100 ML VIAL IVP ONE (15:27)
--- NOTE | 2022-11-21 16:29 | CT Report ---
PROCEDURE: ABDOMEN/PELVIS W INDICATIONS: INCISIONAL HERNIA CONTRAST: 100ml Omnipaque 300 TECHNIQUE: After the administration of contrast, 5 mm thick sections acquired from the diaphragms to the symphys is. 5 mm thick coronal and sagittal reformats were acquired. For radiation dose reduction, the foll owing was used: automated exposure control, adjustment of mA and/or kV according to patient size. COMPARISON: 04/30/2020 FINDINGS: Image quality: Excellent. Lung bases and heart: Unremarkable. Liver: The liver is enlarged, especially the left lobe of the liver. No focal lesion. Gallbladder and biliary tree: The gallbladder is normal with no stones or wall thickening. No pericho lecystic fluid. Spleen: No splenomegaly. Pancreas: No pancreatic ductal dilation. Adrenals: No adrenal nodule. Kidneys and ureters: No hydronephrosis. No renal cystic lesion which requires follow up. No solid mas s. Bowel and peritoneum: The distal esophagus is normal. The stomach and small bowel are opacified with contrast. The large bowel contains increased stool throughout with distention of the right and transv erse colon measuring up to 5.2 cm. Lymph nodes: No central or retroperitoneal adenopathy. Vessels: No infrarenal aortic aneurysm. PELVIS Reproductive organs: Unremarkable. Bladder: No abnormal wall thickening, accounting for underdistension. Pelvic lymph nodes: No pelvic adenopathy by size criteria. Bones: No aggressive osseous abnormality. Other: No significant ventral or inguinal hernia. IMPRESSION: 1. No incisional hernia is identified. 2. Distention of the large bowel with fluid and stool consistent with ileus. Reviewed by: Sanket Cazares on 11/21/2022 4:27 PM PDT Approved by: Sanket Cazares on 11/21/2022 4:27 PM PDT Station ID: [id number]
== END 2022-11-21 11:29 | disposition home or self-care (01) ==
LOC: LAB 11:28
PROVIDERS: ATTEND Surgery
DX: K43.2 Incisional hernia without obstruction or gangrene (principal); R93.3 Abnormal findings on diagnostic imaging of other parts of digestive tract
CPT/HCPCS: 36415; 74177; 82565; Q9963; Q9967

== ENCOUNTER 2022-12-25 09:59 | Outpatient (CLI) | payer MEDICARE | END 2022-12-25 10:00 | disposition home or self-care (01) | LOC: RT 09:59 | PROVIDERS: ATTEND Internal Medicine | DX: Z79.899 Other long term (current) drug therapy (principal) | CPT/HCPCS: 93005 ==

== ENCOUNTER 2022-12-25 10:24 | Day surgery (SDC) | payer MEDICARE ==
[2022-12-25] MEDS ORDERED: ceFAZolin 2 GM VIAL ONE (10:45)
[2022-12-25] MEDS ORDERED: ACETAMINOPHEN 500 MG TABLET PO ONE (10:45)
[2022-12-25] MEDS ORDERED: LACTATED RINGERS 1,000 ML IV ONE (10:56)
--- NOTE | 2022-12-25 11:18 | ANESTHESIA ---
Pre-Anesthesia VS, & Labs - Diagnosis chronic abdominal wound - Procedure abd wound exploration Vital Signs: Temp Pulse Resp BP Pulse Ox O2 Flow Rate 36.0 C L 57 L 16 140/80 H 100 0 12/25/22 10:33 12/25/22 10:33 12/25/22 10:33 12/25/22 10:33 12/25/22 10:33 12/25/22 10:33 Height: 5 ft 1 in Weight (kg): 44 kg Body Mass Index: 18.3 BMI Classification: Underweight - NPO >8 hours - Is Patient ?: No - Lab Results Lab results reviewed: Yes Home Medications and Allergies Loperamide [Imodium] 2 mg PO QID PRN 06/07/16 Multivitamin [Multivitamins] 1 each PO DAILY 06/08/16 Lisinopril [Zestril] 2 tab PO DAILY 09/25/22 amLODIPine [Norvasc] 1 tab PO DAILY 09/25/22 Allergies/Adverse Reactions: Allergies Allergy/AdvReac Type Severity Reaction Status Date / Time Sulfa (Sulfonamide Allergy Unknown Unknown Verified 09/25/22 12:36 Antibiotics) Anes History & Medical History - Anesthetic History Anesthesia Complications: reports: No previous complications Family history of Anesthesia Complications: Denies Family history of Malignant Hyperthermia: Denies - Medical History Cardiovascular: reports: Hypertension Pulmonary: reports: Other Gastrointestinal: reports: Colon polyps, Chronic diarrhea Urinary: reports: None Neuro: reports: None Musculoskeletal: reports: Osteoarthritis, Osteoporosis Endocrine/Autoimmune: reports: None Blood Disorders: reports: None Skin: reports: Other Smoking Status: Never smoker - Surgical History General: reports: Bowel surgery, Colonoscopy, Other Eyes Ears Nose Throat (EENT): reports: Tonsil/Adenoidectomy Gynecologic: reports: Hysterectomy, Oophrectomy Orthopedic: reports: Hip replacement, Other Exam General: Alert, Oriented x3, Cooperative Dental: WNL Mouth Openin Fingerbreadth Neck Mobility: Normal Mallampati classification: I Thyromental Distance: 4-6 cm Cardiovascular: Regular rate Plan Anesthesia Type: MAC Consent for Procedure(s) Verified and Reviewed: Yes Code Status: Attempt Resuscitation ASA classification: 2-Mild systemic disease Is this case an emergency?: No
[2022-12-25] MEDS ORDERED: ONDANSETRON 4 MG/2 ML VIAL IVP PRN ×2 (11:20→13:07)
[2022-12-25] MEDS ORDERED: ATROPINE ABBOJECT 1 MG/10 ML SYRINGE IVP PRN (11:20)
[2022-12-25] MEDS ORDERED: HYDROmorphone 0.5 MG/0.5 ML SYRINGE IVP PRN (11:20)
[2022-12-25] MEDS ORDERED: NALOXONE 0.4 MG/ML VIAL IVP PRN (11:20)
[2022-12-25] MEDS ORDERED: ePHEDrine 50 MG/ML VIAL IVP PRN (11:20)
[2022-12-25] MEDS ORDERED: fentaNYL 100 MCG/2 ML VIAL IVP PRN (11:20)
[2022-12-25] MEDS ORDERED: LACTATED RINGERS 1,000 ML IV SCH (12:00)
[2022-12-25] MEDS ORDERED: PROPOFOL 500 MG/50 ML 500 MG/50 ML VIAL ONE (12:18)
[2022-12-25] MEDS ORDERED: LIDOCAINE-PF 2% 10 ML AMP SUBQ ONE (12:18)
[2022-12-25] MEDS ORDERED: LIDOCAINE 1%-EPI 1:100000 20 ML MDV ONE (12:19)
[2022-12-25] MEDS ORDERED: BUPIVACAINE 0.25% PF 30 ML VIAL ONE (12:19)
[2022-12-25] MEDS ORDERED: LIDOCAINE 1%-EPI 1:100000 20 ML MDV SUBQ ONE (12:58)
[2022-12-25] MEDS ORDERED: BUPIVACAINE 0.25% PF 30 ML VIAL SUBQ ONE (12:59)
--- NOTE | 2022-12-25 13:10 | OPERATIVE REPORT ---
Operative Report - General Procedure Date: 12/25/22 Planned Procedure: exploration of abdominal wound Pre-Op Diagnosis: chronic abdominal wound Procedure Performed: exploration of abdominal wound, simple cyst excision (1cm in greatest diameter) Post Op Diagnosis: chronic abdominal wound with subcutaneous cyst - Procedure Note Primary Surgeon: Dr. Opal Heredia Anesthesia Technique: Local, MAC Pathology: chronic abdominal wound cyst, sent to pathology Estimated Blood Loss (mL): 5 Indications: The patient has a area along her midline incision from her previous ventral hernia repair which has drained intermittently for the last several years. It will drain clear to serosanguineous fluid for up to a couple of weeks every couple of months. She has had imaging that does not demonstrate any sign of infection or recurrence of her hernia. She denies any nausea, vomiting, or other associated symptoms. We discussed the risks, benefits, and alternatives of excision of the skin in this area and any underlying cystic structure that could be contributing to her recurrent symptoms. I recommended this be done in the operating room given the underlying mesh. We discussed the risks, benefits, and alternatives of the procedure including bleeding, infection, infection of the mesh, and the need for further surgeries or procedures. The patient voiced understanding, her questions were answered, and she wished to proceed. A consent was signed by the patient prior to the procedure. Findings: 1.1 cm simple cyst in the subcutaneous tissue Complications: None - Other Other Information/Narrative: The patient was taken to the operating room and placed in the supine position. Preop antibiotics were given. ERAS medications were given. The patient was prepped and draped in the usual sterile fashion. A preop surgical timeout was performed. Attention was turned to the patient's abdomen. An elliptical incision was made which incorporated the area of previous drainage from the skin due. Skin flaps were raised superiorly and medially and laterally to completely excise the cyst. The cyst was dissected from the surrounding tissue circumferentially and removed. There were no signs of infection. There was no stitch or other foreign body noted at the location of the cyst. It was sent for permanent pathology. The edges of the cavity were inspected and hemostasis was confirmed. The cavity was irrigated with 50 mL of warm normal saline. The deep dermal tissues were closed with 3-0 Vicryl. A 4-0 Monocryl running stitch was placed in a subcuticular fashion. Skin glue was placed over both incisions. The patient tolerated the procedure well. There were no complications.
--- NOTE | 2022-12-25 13:20 | ANESTHESIA POST OP EVALUATION ---
Anesthesia Post Eval - Post Anesthesia Eval Vitals: Last Vital Signs Temp 36.0 C L 12/25/22 10:33 Pulse 57 L 12/25/22 10:33 Resp 16 12/25/22 10:33 BP 140/80 H 12/25/22 10:33 Pulse Ox 100 12/25/22 10:33 O2 Flow Rate 0 12/25/22 10:33 CV Function Including HR & BP: Stable Pain Control: Satisfactory Nausea & Vomiting: Negative Mental Status: Baseline Respiratory Status: Airway Patent Hydration Status: Satisfactory Anesthesia Complications: None
[2022-12-25 13:42] VITALS: BP 141/70
[2022-12-25] MEDS ORDERED: LACTATED RINGERS 600 ML IV ONE (13:57)
[2022-12-25] MEDS ORDERED: ACETAMINOPHEN 500 MG TABLET PO PRN (16:45)
== END 2022-12-25 10:25 | disposition home or self-care (01) ==
LOC: SDS 10:24
PROVIDERS: ATTEND Surgery
PROC: 0WBF0ZZ Excision of Abdominal Wall, Open Approach (ICD-10-PCS; principal; 2022-12-25 12:30)
DX: T81.31XA Disruption of external operation (surgical) wound, not elsewhere classified, initial encounter (principal); L90.5 Scar conditions and fibrosis of skin; L76.82 Other postprocedural complications of skin and subcutaneous tissue; I96 Gangrene, not elsewhere classified; L72.0 Epidermal cyst; R60.0 Localized edema; Y83.8 Other surgical procedures as the cause of abnormal reaction of the patient, or of later complication, without mention of misadventure at the time of the procedure; I10 Essential (primary) hypertension
CPT/HCPCS: 11402; 12031; 93005; A9270; J7120

== ENCOUNTER 2023-01-02 09:21 | Outpatient (CLI) | payer MEDICARE ==
--- NOTE | 2023-01-02 14:41 | CT Report ---
PROCEDURE: CHEST WO INDICATIONS: LUNG NODULE TECHNIQUE: Noncontrast 1mm axial images were acquired from the pulmonary apices to the posterior costophrenic an gles. Axial 5 mm soft tissue kernel reconstructions were performed as well as 8 mm axial MIP and cor onal and sagittal 5 mm reformations. For radiation dose reduction, the following was used: automate d exposure control, adjustment of mA and/or kV according to patient size. COMPARISON: Chest films dated 06/12/2022 FINDINGS: Image quality: Excellent. Lungs and pleura: No consolidation. No pleural effusions. No pneumothorax. No suspicious pulmonary n odules which require follow up. The nodular density projecting to the left lateral costophrenic angle on the previous plain films of the chest represents a bone island of the left ninth anterior lateral rib. There is no suspicious pulmonary nodule. Mediastinum: Heart size is normal. No pericardial effusion. No large vessel abnormality. No mediastin al adenopathy by size criteria. Chest wall and lower neck: Thyroid is unremarkable. No axillary or supraclavicular adenopathy by size . Bones: No aggressive osseous abnormality. There is lumbar degenerative change. There is S-shaped thor acolumbar scoliotic curvature. There is canal stenosis at L3-L4. Upper Abdomen: Unremarkable. IMPRESSION: 1. The previously noted nodular density projecting to the left lateral costophrenic angle on the ches t x-ray from June, represents a benign bone island of the anterior lateral left ninth rib. T here are no suspicious pulmonary nodules. 2. Lumbar degenerative change with canal stenosis. Reviewed by: Dennis Block MD on 01/02/2023 2:39 PM PDT Approved by: Dennis Block MD on 01/02/2023 2:39 PM PDT Station ID: [id number]
== END 2023-01-02 09:22 | disposition home or self-care (01) ==
LOC: DI 09:21
PROVIDERS: ATTEND Internal Medicine Rheumatology
DX: R91.1 Solitary pulmonary nodule (principal); Z22.7 Latent tuberculosis; M47.816 Spondylosis without myelopathy or radiculopathy, lumbar region; M48.061 Spinal stenosis, lumbar region without neurogenic claudication; Z13.220 Encounter for screening for lipoid disorders